=== PATIENT | male | born 2000 | race Caucasian/White ===

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

== ENCOUNTER 2024-05-16 21:47 | Emergency (ER) | payer BC, MEDICAID ==
[~2024-05-16] VITALS: Ht 180.3 cm; Wt 80.0 kg
[2024-05-16 21:53] VITALS: BP 153/88; PULSE 104; RESP 18
[2024-05-16] MEDS ORDERED: PENI500T2 PO (22:23)
[2024-05-16] MEDS: penicillin V potassium 500mg tablet PO ONE (22:46)
[2024-05-16] MEDS: diphenhydrAMINE 25 MG/10 ML UD oral solution PO ONE (22:48)
[2024-05-16] MEDS: dexamethasone sod phosphate 10mg/ml inj PO STA (22:48)
[2024-05-16 22:50] VITALS: TEMP 100.4; O2SAT 98
== END 2024-05-16 22:51 | disposition home or self-care (01) ==
LOC: ER 21:48
DX: J02.0 Streptococcal pharyngitis (principal)
CPT/HCPCS: 99284; J1100; Q0163

== ENCOUNTER 2024-05-18 19:10 | Emergency (ER) | payer BC ==
[~2024-05-18] VITALS: Ht 180.3 cm; Wt 81.8 kg
[~2024-05-18 19:10] MED LIST: PENI500T2 PO
[2024-05-18 19:25] VITALS: BP 135/79; PULSE 109; TEMP 100.4; O2SAT 99
[2024-05-18 19:35] VITALS: RESP 16
[2024-05-18] MEDS: LIDOcaine 1% 30ml preserv. free vial IJ ONE (19:55)
[2024-05-18] MEDS: LIDOcaine 2% Viscous 15ml cup MM ONE (19:55)
[2024-05-18] MEDS ORDERED: dexamethasone inj 8 MG in dextrose 5%-water 100 ML IV ONE (19:55)
[2024-05-18] MEDS: normal saline 1000ml 1,000 ML IV ONE (20:10)
[2024-05-18] MEDS: acetaminophen 1,000mg/100ml IV 100 ML IV ONE (20:11)
[2024-05-18] MEDS: CefTRIAXone 2gm/D5W 50ml BAG 50 ML IV ONE (20:11)
[2024-05-18] MEDS ORDERED: CLIN150C2 PO (21:37)
[2024-05-18] MEDS ORDERED: PRED20TA PO (21:37)
[2024-05-18] MEDS: dexamethasone sod phosphate 4mg/ml inj. IV ONE (21:44)
== END 2024-05-18 22:09 | disposition home or self-care (01) ==
LOC: ER 19:11
DX: J36 Peritonsillar abscess (principal)
CPT/HCPCS: 42700; 96365; 96368; 96375; 99284; J0131; J0696; J1100; J7030; A6449